=== PATIENT | male | born 1985 | race Caucasian/White ===

== ENCOUNTER 2024-12-17 11:22 | Emergency (ER) | payer OTHER ==
[2024-12-17] MEDS ORDERED: Lidocaine 1% w/Epinephrine 1:100K 20 ML VIAL ONE (12:45)
[2024-12-17] MEDS ORDERED: Boostrix 0.5 ML (Tdap) VIAL (>/=7 yrs of age) ONE (12:45)
[2024-12-17] MEDS ORDERED: Lidocaine/Transparent Dressing 1 EACH KIT ONE (14:00)
[2024-12-17] MEDS ORDERED: Acetaminophen 500 MG TAB ONE (14:35)
== END 2024-12-17 15:26 | disposition home or self-care (01) ==
LOC: ERS 11:22
DX: S01.01XA Laceration without foreign body of scalp, initial encounter (principal); Z23 Encounter for immunization; F17.290 Nicotine dependence, other tobacco product, uncomplicated; W22.8XXA Striking against or struck by other objects, initial encounter
CPT/HCPCS: 12004; 70450; 72125; 90471; 90715

== ENCOUNTER 2024-12-27 14:52 | Emergency (ER) | payer OTHER | END 2024-12-27 15:58 | disposition home or self-care (01) | LOC: ERS 14:52 | DX: S01.01XD Laceration without foreign body of scalp, subsequent encounter (principal); F17.290 Nicotine dependence, other tobacco product, uncomplicated; W19.XXXD Unspecified fall, subsequent encounter | CPT/HCPCS: 99281 ==